=== PATIENT | female | born 1955 ===

== ENCOUNTER 2018-01-27 13:00 | Inpatient (IN) | payer OTHER ==
[~2018-01-27] VITALS: Ht 154.9 cm; Wt 59.0 kg
== END 2018-02-09 15:52 | DRG 735 ==
LOC: O/R 02-07 06:21 → SURH 02-07 13:00 → SURG-SUITE 02-07 17:27
PROVIDERS: Obstetrics & Gynecology Gynecologic Oncology
PROC: 0UT90ZZ Resection of Uterus, Open Approach (ICD-10-PCS; 2018-02-07)
PROC: 07TC0ZZ Resection of Pelvis Lymphatic, Open Approach (ICD-10-PCS; 2018-02-07)
PROC: 0UT70ZZ Resection of Bilateral Fallopian Tubes, Open Approach (ICD-10-PCS; 2018-02-07)
PROC: 0UT20ZZ Resection of Bilateral Ovaries, Open Approach (ICD-10-PCS; 2018-02-07)
PROC: 0DTJ0ZZ Resection of Appendix, Open Approach (ICD-10-PCS; principal; 2018-02-07 16:00)
DX: D27.1 Benign neoplasm of left ovary (principal); N72 Inflammatory disease of cervix uteri